=== PATIENT | female | born 1940 | race Caucasian/White ===

== ENCOUNTER 2018-01-29 13:33 | Day surgery (SDC) | payer OTHER ==
[~2018-01-29] VITALS: Ht 152.4 cm; Wt 67.2 kg
[2018-01-29] MEDS ORDERED: diphenhydrAMINE 25mg capsule PO PRN (14:15)
[2018-01-29] MEDS ORDERED: LORazepam 0.5 MG tablet PO PRN (14:15)
[2018-01-29] MEDS ORDERED: APIX5TAB3 PO (14:30)
[2018-01-29] MEDS ORDERED: LEVO75TA PO (14:30)
[2018-01-29] MEDS ORDERED: BRIM5DRO2 EACHEYE (14:30)
[2018-01-29] MEDS ORDERED: MAGN500C16 PO (14:30)
[2018-01-29] MEDS ORDERED: CYTOMEL PO (14:30)
[2018-01-29] MEDS ORDERED: normal saline 1000ml 1,000 ML IV SCH (15:00)
[2018-01-29 15:03] VITALS: BP 165/73
[2018-01-29] MEDS ORDERED: clindamycin 600mg/D5W 50ml 50 ML IV SCH (16:00)
[2018-01-29] MEDS ORDERED: LIDOcaine 1% (10mg/ml) 2ml vial ONE (16:16)
[2018-01-29] MEDS ORDERED: clindamycin 600mg/D5W 50ml 50 ML IV ONE (16:34)
[2018-01-29] MEDS ORDERED: clindamycin phosphate 150mg/ml inj. ONE (16:35)
[2018-01-29] MEDS ORDERED: LIDOcaine 1.5% w/epinephrine 1:200,000 5ml ampul ONE ×2 (16:35→16:42)
[2018-01-29] MEDS ORDERED: fentaNYL/PF 50MCG/1 ML 2ML syringe ONE (16:50)
[2018-01-29] MEDS ORDERED: midazolam 2 mg/2 ml injection ONE (16:51)
[2018-01-29 17:44] VITALS: BP 166/57
[2018-01-29 18:13] VITALS: BP 178/80
[2018-01-29 18:28] VITALS: BP 159/72
[2018-01-29 18:43] VITALS: BP 159/72
== END 2018-01-29 19:35 | disposition home or self-care (01) ==
LOC: SSTAY O 13:33
PROVIDERS: ATTEND Internal Medicine Interventional Cardiology
DX: I44.1 Atrioventricular block, second degree (principal); I10 Essential (primary) hypertension; L40.8 Other psoriasis; Z88.2 Allergy status to sulfonamides; Z88.0 Allergy status to penicillin; Z88.6 Allergy status to analgesic agent; Z87.891 Personal history of nicotine dependence; Z86.73 Personal history of transient ischemic attack (TIA), and cerebral infarction without residual deficits; Z79.82 Long term (current) use of aspirin; Z79.01 Long term (current) use of anticoagulants; Z79.899 Other long term (current) drug therapy; Z98.890 Other specified postprocedural states
CPT/HCPCS: 33208; 93005; 99152; 99153; A4565; C1785; C1898; J2250; J3010; J3490; J7030; Q0163; A4620

== ENCOUNTER 2018-01-31 06:44 | Emergency (ER) | payer OTHER ==
[~2018-01-31] VITALS: Ht 152.4 cm; Wt 67.0 kg
[~2018-01-31 06:44] MED LIST: APIX5TAB3 PO; BRIM5DRO2 EACHEYE; CYTOMEL PO; LEVO75TA PO; MAGN500C16 PO
[2018-01-31 06:52] VITALS: BP 146/90
[2018-01-31 08:06] LABS: BASOPHILS % (AUTO) 0.3 % (0-1); EOSINOPHILS # (AUTO) 0.4 X10'3 (0-0.9); EOSINOPHILS % (AUTO) 3.2 % (0-6); HEMATOCRIT 40.3 % (35.0-45.0); HEMOGLOBIN 13.7 g/dl (12.0-16.0); LYMPHOCYTES # (AUTO) 0.9 X10'3 (1.1-4.8); LYMPHOCYTES % (AUTO) 7.3 % (21-51); MEAN CORPUSCULAR HEMOGLOBIN 30.5 PG (27.0-31.0); MEAN CORPUSCULAR VOLUME 89.8 FL (78-98); MEAN PLATELET VOLUME 7.6 FL (7.4-10.4); MONOCYTES # (AUTO) 0.9 X10'3 (0-0.9); MONOCYTES % (AUTO) 6.9 % (2-12); NEUTROPHILS # (AUTO) 10.3 X10'3 (1.8-7.7); NEUTROPHILS % (AUTO) 82.3 % (42-75); PLATELET COUNT 222 X10'3 (140-440); RED BLOOD COUNT 4.48 X10'6 (4.20-5.60); RED CELL DISTRIBUTION WIDTH 14.3 % (11.5-14.5); WHITE BLOOD COUNT 12.5 X10'3 (4.5-11.0)
[2018-01-31 08:28] LABS: ALANINE AMINOTRANSFERASE 31 U/L (12-78); ALBUMIN 3.5 G/DL (3.4-5.0); ALKALINE PHOSPHATASE 52 IU/L (46-116); ANION GAP 7 (8-16); ASPARTATE AMINO TRANSFERASE 22 U/L (10-37); BILIRUBIN,TOTAL 0.6 MG/DL (0.1-1.0); BLOOD UREA NITROGEN 34 MG/DL (7-18); BUN/CREATININE RATIO 31.8 (6.6-38.0); CALCIUM 9.5 MG/DL (8.5-10.1); CHLORIDE 103 MMOL/L (99-107); CREATININE 1.07 MG/DL (0.40-0.90); GLUCOSE 108 MG/DL (70-104); MAGNESIUM 2.5 MG/DL (1.5-2.4); POTASSIUM 4.8 MMOL/L (3.5-5.1); SODIUM 138 MMOL/L (135-145); TOTAL CARBON DIOXIDE 28.2 MMOL/L (24-32); TOTAL PROTEIN 7.1 G/DL (6.4-8.2); eGFR 50 ML/MIN
[2018-01-31 08:32] LABS: PROTHROMBIN TIME 10.7 SECONDS (9.0-12.0)
[2018-01-31] MEDS ORDERED: normal saline 1000ml 1,000 ML IV ONE (08:35)
== END 2018-01-31 11:30 | disposition home or self-care (01) ==
LOC: ER 06:44
DX: T82.120A Displacement of cardiac electrode, initial encounter (principal); Z88.0 Allergy status to penicillin; Z88.2 Allergy status to sulfonamides; Z88.5 Allergy status to narcotic agent; Z95.0 Presence of cardiac pacemaker; Z79.899 Other long term (current) drug therapy; Y92.9 Unspecified place or not applicable
CPT/HCPCS: 36415; 71045; 80053; 83735; 83880; 84484; 85025; 85610; 93005; 99285; J7030

== ENCOUNTER 2018-02-02 05:19 | Day surgery (SDC) | payer OTHER ==
[2018-02-02] VITALS (10 sets, daily range): BP systolic 133–170; BP diastolic 57–99
[~2018-02-02] VITALS: Ht 152.4 cm; Wt 66.3 kg
[2018-02-02] MEDS ORDERED: normal saline 1000ml 1,000 ML IV ONE (05:40)
[2018-02-02] MEDS ORDERED: diphenhydrAMINE 25mg capsule PO ONE (05:40)
[2018-02-02] MEDS ORDERED: LORazepam 0.5 MG tablet PO ONE (05:40)
[2018-02-02] MEDS ORDERED: clindamycin 600mg/D5W 50ml 50 ML IV ONE (06:01)
[2018-02-02] MEDS ORDERED: fentaNYL/PF 50MCG/1 ML 2ML syringe ONE (06:01)
[2018-02-02] MEDS ORDERED: clindamycin phosphate 150mg/ml inj. ONE (06:01)
[2018-02-02] MEDS ORDERED: midazolam 2 mg/2 ml injection ONE (06:02)
[2018-02-02] MEDS ORDERED: LIDOcaine 1.5% w/epinephrine 1:200,000 5ml ampul ONE (06:02)
[2018-02-02] MEDS ORDERED: HYDROcodone/acetaminophen 5mg/325mg tablet PO PRN (07:35)
[2018-02-02] MEDS ORDERED: HYDROcodone/acetaminophen 10/325mg tab PO PRN (07:35)
[2018-02-02] MEDS ORDERED: clindamycin 600mg/D5W 50ml IVPB IV SCH (08:00)
[2018-02-02] MEDS ORDERED: lactobacillus rhamnosus 10,000 MMU CELLS/CAPSULE PO SCH (20:00)
== END 2018-02-02 10:00 | disposition home or self-care (01) ==
LOC: SSTAY O 05:19
PROVIDERS: ATTEND Internal Medicine Interventional Cardiology
DX: Z45.018 Encounter for adjustment and management of other part of cardiac pacemaker (principal); E78.5 Hyperlipidemia, unspecified; Z88.0 Allergy status to penicillin; Z88.2 Allergy status to sulfonamides; Z88.6 Allergy status to analgesic agent; Z86.73 Personal history of transient ischemic attack (TIA), and cerebral infarction without residual deficits; Z98.890 Other specified postprocedural states; Z79.01 Long term (current) use of anticoagulants; Z79.899 Other long term (current) drug therapy
CPT/HCPCS: 33215; 93005; 99152; 99153; A4565; J2250; J3010; J3490; J7030; Q0163; A4620

== ENCOUNTER 2023-12-04 10:07 | Emergency (ER) | payer OTHER ==
[~2023-12-04] VITALS: Ht 152.4 cm; Wt 75.0 kg
[~2023-12-04 10:07] MED LIST changes: -MAGN500C16 PO; +MAGN500C4 PO
[2023-12-04 10:29] VITALS: TEMP 98
[2023-12-04 11:53] LABS: BASOPHILS # (AUTO) 0.1 X10'3 (0-0.2); BASOPHILS % (AUTO) 0.9 % (0-1); EOSINOPHILS # (AUTO) 0.1 X10'3 (0-0.9); EOSINOPHILS % (AUTO) 2.2 % (0-6); HEMATOCRIT 32.7 % (35.0-45.0); HEMOGLOBIN 10.6 g/dl (12.0-16.0); LYMPHOCYTES # (AUTO) 1.1 X10'3 (1.1-4.8); MEAN CORPUSCULAR HEMOGLOBIN 29.9 PG (27.0-31.0); MEAN CORPUSCULAR HGB CONC 32.5 g/dL (33.0-36.5); MEAN PLATELET VOLUME 7.8 FL (7.4-10.4); MONOCYTES # (AUTO) 0.5 X10'3 (0-0.9); MONOCYTES % (AUTO) 6.8 % (2-12); NEUTROPHILS # (AUTO) 4.8 X10'3 (1.8-7.7); NEUTROPHILS % (AUTO) 73.1 % (42-75); PLATELET COUNT 204 X10'3 (140-440); RED BLOOD COUNT 3.55 X10'6 (4.20-5.60); RED CELL DISTRIBUTION WIDTH 16.1 % (11.5-14.5); WHITE BLOOD COUNT 6.6 X10'3 (4.5-11.0)
[2023-12-04 12:07] LABS: ALBUMIN 3.3 G/DL (3.4-5.0); ANION GAP 7 (8-16); BLOOD UREA NITROGEN 23 MG/DL (7-18); BUN/CREATININE RATIO 17.7 (10.0-20.0); CALCIUM 8.7 MG/DL (8.5-10.1); CHLORIDE 108 MMOL/L (99-107); GLUCOSE 146 MG/DL (70-104); POTASSIUM 4.8 MMOL/L (3.5-5.1); SODIUM 139 MMOL/L (135-145); eCRCL 23 ML/MIN; eGFR 39 ML/MIN
[2023-12-04] MEDS: normal saline 1000ML IV soln IVB ONE (13:10)
[2023-12-04 13:29] LABS: BILIRUBIN,URINE NEGATIVE (Neg); CLARITY,URINE CLEAR (Clear); COLOR,URINE YELLOW (Yellow); GLUCOSE, URINE NEGATIVE (Neg); KETONES,URINE NEGATIVE (Neg); LEUKOCYTE ESTERASE ,URINE NEGATIVE (Neg); NITRITES, URINE NEGATIVE (Neg); OCCULT BLOOD,URINE NEGATIVE (Neg); PROTEIN,URINE NEGATIVE (Neg); UROBILINOGEN,URINE 0.2 E.U/dL (0.2-1.0)
[2023-12-04 13:39] LABS: UA COLLECTION TYPE STRAIGHT CATH
[2023-12-04 15:12] VITALS: BP 106/67; PULSE 102; RESP 16; O2SAT 94
== END 2023-12-04 15:18 | disposition home or self-care (01) ==
LOC: MERGE 10:08 → ER 10:08
DX: R41.0 Disorientation, unspecified (principal); Z88.0 Allergy status to penicillin; Z88.2 Allergy status to sulfonamides; Z88.5 Allergy status to narcotic agent; Z79.899 Other long term (current) drug therapy
CPT/HCPCS: 36415; 70450; 71045; 80048; 81003; 84145; 85025; 93005; 96360; 99285; J7030; A4353